=== PATIENT | female | born 1975 | race Caucasian/White ===

== ENCOUNTER 2018-08-29 10:34 | Emergency (ER) | payer MEDICAID ==
[~2018-08-29] VITALS: Ht 167.6 cm; Wt 111.4 kg
[2018-08-29 10:41] VITALS: BP 125/80
== END 2018-08-29 11:33 | disposition home or self-care (01) ==
LOC: ER 10:34
DX: S61.412D Laceration without foreign body of left hand, subsequent encounter (principal); Z88.0 Allergy status to penicillin; Z88.5 Allergy status to narcotic agent; W54.0XXD Bitten by dog, subsequent encounter
CPT/HCPCS: 99281

== ENCOUNTER 2020-01-01 15:49 | Emergency (ER) | payer MEDICAID ==
[~2020-01-01] VITALS: Ht 165.1 cm; Wt 130.0 kg
[2020-01-01 17:16] LABS: BASOPHILS # (AUTO) 0.1 X10'3 (0-0.2); BASOPHILS % (AUTO) 0.8 % (0-1); EOSINOPHILS # (AUTO) 0.6 X10'3 (0-0.9); EOSINOPHILS % (AUTO) 5.9 % (0-6); HEMATOCRIT 38.6 % (35.0-45.0); HEMOGLOBIN 12.8 g/dl (12.0-16.0); LYMPHOCYTES # (AUTO) 3.1 X10'3 (1.1-4.8); MEAN CORPUSCULAR HEMOGLOBIN 30.8 PG (27.0-31.0); MEAN CORPUSCULAR HGB CONC 33.2 g/dL (33.0-36.5); MEAN CORPUSCULAR VOLUME 92.6 FL (78-98); MEAN PLATELET VOLUME 8.9 FL (7.4-10.4); MONOCYTES # (AUTO) 0.6 X10'3 (0-0.9); MONOCYTES % (AUTO) 5.7 % (2-12); NEUTROPHILS # (AUTO) 5.6 X10'3 (1.8-7.7); NEUTROPHILS % (AUTO) 56.6 % (42-75); PLATELET COUNT 297 X10'3 (140-440); RED BLOOD COUNT 4.16 X10'6 (4.20-5.60); RED CELL DISTRIBUTION WIDTH 13.5 % (11.5-14.5); WHITE BLOOD COUNT 9.9 X10'3 (4.5-11.0)
[2020-01-01 17:30] LABS: ALANINE AMINOTRANSFERASE 20 U/L (12-78); ALKALINE PHOSPHATASE 63 IU/L (46-116); ANION GAP 5 (8-16); ASPARTATE AMINO TRANSFERASE 11 U/L (10-37); BILIRUBIN,TOTAL 0.5 MG/DL (0.1-1.0); BLOOD UREA NITROGEN 9 MG/DL (7-18); BUN/CREATININE RATIO 9.4 (6.6-38.0); CALCIUM 8.5 MG/DL (8.5-10.1); CHLORIDE 110 MMOL/L (99-107); CREATININE 0.96 MG/DL (0.40-0.90); GLUCOSE 93 MG/DL (70-104); POTASSIUM 3.4 MMOL/L (3.5-5.1); SODIUM 143 MMOL/L (135-145); TOTAL CARBON DIOXIDE 28.2 MMOL/L (24-32); TOTAL PROTEIN 5.9 G/DL (6.4-8.2); eGFR 64 ML/MIN
--- NOTE | 2020-01-01 17:31 | NUR ---
pt ambulated independenly to the bathroom, pt presents sob, i offered a bedside commode and a wheelchair, pt refused both.
[2020-01-01] MEDS ORDERED: potassium Cl 20 mEq SR tablet PO ONE (17:40)
[2020-01-01] MEDS ORDERED: ALBU8HFA PO (17:41)
[2020-01-01 17:58] VITALS: BP 138/87
== END 2020-01-01 18:01 | disposition home or self-care (01) ==
LOC: ER 15:49
DX: R53.1 Weakness (principal); R07.89 Other chest pain; R56.9 Unspecified convulsions; F12.90 Cannabis use, unspecified, uncomplicated; Z59.0 Homelessness; Z88.0 Allergy status to penicillin; Z88.5 Allergy status to narcotic agent; Z79.899 Other long term (current) drug therapy
CPT/HCPCS: 36415; 71045; 80053; 84484; 85025; 93005; 99285

== ENCOUNTER 2020-08-06 09:41 | Emergency (ER) | payer MEDICAID ==
[~2020-08-06] VITALS: Ht 166.4 cm; Wt 125.4 kg
[2020-08-06 09:45] VITALS: BP 132/86
[2020-08-06] MEDS ORDERED: triamcinolone acetonide 40mg/ml inj IM ONE (10:25)
[2020-08-06] MEDS ORDERED: PERM60CR19 TOP (10:28)
[2020-08-06] MEDS ORDERED: PRED10TA PO (10:28)
[2020-08-06] MEDS ORDERED: HYDR28CR14 TOP (10:28)
== END 2020-08-06 10:38 | disposition home or self-care (01) ==
LOC: ER 09:42
DX: L30.9 Dermatitis, unspecified (principal); F41.9 Anxiety disorder, unspecified; F32.9 Major depressive disorder, single episode, unspecified; F12.90 Cannabis use, unspecified, uncomplicated; Z88.0 Allergy status to penicillin; Z88.5 Allergy status to narcotic agent; Z79.899 Other long term (current) drug therapy
CPT/HCPCS: 96372; 99283; J3301

== ENCOUNTER 2021-03-24 11:21 | Emergency (ER) | payer MEDICAID ==
[~2021-03-24] VITALS: Ht 165.1 cm; Wt 115.0 kg
[~2021-03-24 11:21] MED LIST: HYDR28CR14 TOP; PRED10TA PO
[2021-03-24 11:26] VITALS: BP 140/95
[2021-03-24] MEDS ORDERED: MUPI22OI30 TP (11:44)
== END 2021-03-24 11:52 | disposition home or self-care (01) ==
LOC: ER 11:21
DX: L03.317 Cellulitis of buttock (principal); F41.9 Anxiety disorder, unspecified; F12.90 Cannabis use, unspecified, uncomplicated; F32.9 Major depressive disorder, single episode, unspecified; Z88.0 Allergy status to penicillin; Z88.5 Allergy status to narcotic agent; Z79.899 Other long term (current) drug therapy
CPT/HCPCS: 99283